=== PATIENT | female | born 1980 ===

== ENCOUNTER 2017-02-19 08:51 | Emergency (ER) | payer OTHER ==
[2017-02-19 09:32] VITALS: BMI 41.8
[2017-02-19 09:52] LABS: BASO % 0.4 % (0.0-2.0); EOS % 0.3 % (0.0-4.0); HEMATOCRIT 39.9 % (34.0-47.0); LYMPH # 1.8 K/uL (1.0-4.3); LYMPH % 18.1 % (20.0-40.0); MEAN CELL VOLUME 88.8 fL (81.0-99.0); MEAN CORPUSCULAR HEMOGLOBIN 30.1 pg (27.0-31.0); MEAN CORPUSCULAR HGB CONC 33.9 g/dL (33.0-37.0); MEAN PLATELET VOLUME 8.8 fL (7.2-11.7); MONO # 0.8 K/uL (0.0-0.8); MONO % 7.7 % (0.0-10.0); NRBC % 0.1 % (0.0-2.0); RED CELL DISTRIBUTION WIDTH 13.8 % (11.5-14.5); WHITE BLOOD COUNT 9.9 K/uL (4.8-10.8)
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
[2017-02-19 10:16] LABS: RBC URINE < 1 /hpf (0-3); URINE BILIRUBIN NEGATIVE (NEGATIVE); URINE BLOOD NEGATIVE (NEGATIVE); URINE COLOR Straw (YELLOW); URINE GLUCOSE (UA) NORMAL (Normal); URINE KETONE NEGATIVE (NEGATIVE); URINE LEUKOCYTE ESTERASE NEG Leu/uL (Negative); URINE PROTEIN NEGATIVE (NEGATIVE); URINE UROBILINOGEN NORMAL mg/dL (0.2-1.0); WBC URINE 1 /hpf (0-5)
[2017-02-19] MEDS ORDERED: Iodixanol 320 MG/ML 100 ML BOTTLE IV ONE (11:25)
[2017-02-19 11:29] LABS: CHLORIDE 101 mmol/L (98-107)
[2017-02-19 11:30] LABS: SODIUM 136 mmol/L (132-148)
[2017-02-19 11:32] LABS: ALKALINE PHOSPHATASE 88 U/L (38-126); AST/SGOT 25 U/L (14-36); BILIRUBIN,TOTAL 0.4 mg/dL (0.2-1.3); BLOOD UREA NITROGEN 13 mg/dL (7-17); CARBON DIOXIDE 24 mmol/L (22-30); GFR AFRICAN-AMERICAN > 60; TOTAL PROTEIN 8.2 g/dL (6.3-8.3)
[2017-02-19 11:33] LABS: ALT/SGPT 40 U/L (9-52); CALCIUM 9.8 mg/dl (8.6-10.4); GLUCOSE,RANDOM 76 mg/dL (65-105)
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
--- NOTE | 2017-02-19 13:22 | RAD ---
PROCEDURE: Left Knee Radiographs. HISTORY: Pain. COMPARISON: None. FINDINGS: BONES: Normal. No fracture. JOINTS: Normal. No osteoarthritis. JOINT EFFUSION: Suspect trace suprapatellar joint effusion OTHER FINDINGS: None. IMPRESSION: No evidence of acute displaced fracture nor dislocation. Suspect trace suprapatellar joint effusion.
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
[2017-02-19 15:07] VITALS: BP 128/77; PULSE 90; RESP 18; TEMP 97.8; O2SAT 99
== END 2017-02-19 14:55 | disposition home or self-care (01) ==
LOC: C.ER 08:51
DX: M25.562 Pain in left knee (principal); M54.9 Dorsalgia, unspecified
CPT/HCPCS: 70450; 73564; 74177; 80053; 81001; 84703; 85025; 96374; 96375; 99285; J1885; J2270; J2405; Q9967